=== PATIENT | female | born 1985 | race Caucasian/White ===

== ENCOUNTER 2018-09-18 22:12 | Emergency (ER) | payer OTHER ==
[~2018-09-18] VITALS: Ht 154.9 cm; Wt 77.0 kg
[~2018-09-18 22:12] MED LIST: IBUP-1222 PO; OXYC-302 PO
[2018-09-18 22:31] VITALS: BP 134/89
--- NOTE | 2018-09-18 23:29 | NUR ---
PT TO ROOM PLACED IN A GOWN AND AWAITING ERP AND ORDERS.
[2018-09-18] MEDS ORDERED: KETOROLAC 30 MG/1 ML ONE (23:58)
[2018-09-18] MEDS ORDERED: DIPHENHYDRAMINE 50 MG/ML, 1ML ONE (23:58)
[2018-09-18] MEDS ORDERED: PROCHLORPERAZINE 5 MG/ML, 2ML ONE (23:58)
[2018-09-19] MEDS ORDERED: SODIUM CHLORIDE FLUSH 10ML SYR IVF ONE
[2018-09-19] MEDS ORDERED: KETOROLAC 30 MG/1 ML IVPush ONE
[2018-09-19] MEDS ORDERED: SODIUM CHLORIDE 0.9% 1,000ML IVBOLUS ONE
[2018-09-19] MEDS ORDERED: PROCHLORPERAZINE 5 MG/ML, 2ML IVPush ONE
[2018-09-19] MEDS ORDERED: DIPHENHYDRAMINE 50 MG/ML, 1ML IVPush ONE
--- NOTE | 2018-09-19 00:03 | NUR ---
IVF RUNNING AND PT MEDICATED ORDERED.
--- NOTE | 2018-09-19 00:50 | NUR ---
PT ASLEEP UP FOR RECHECK
== END 2018-09-19 02:58 | disposition home or self-care (01) ==
LOC: ED 23:59
DX: G43.009 Migraine without aura, not intractable, without status migrainosus (principal)
CPT/HCPCS: 93005; 96374; 96375; 99283; J0780; J1200; J1885; J7030